=== PATIENT | female | born 1975 | race Caucasian/White ===

== ENCOUNTER 2017-07-07 12:07 | Emergency (ER) | payer MEDICAID ==
--- NOTE | 2017-07-07 12:58 | ED Physician Chart ---
ED Chief Complaint/HPI - Patient Information Date Seen:: 07/07/17 Time Seen:: 12:40 Chief Complaint:: vaginal spotting History of Present Illness:: Patient developed vaginal spotting this morning. She denies abdominal pain. Patient is 11 weeks . Her last normal menstrual period was 04/23/2017. Patient is 13 para 9 miscarriage 3 living 9. Allergies:: Allergies Allergy/AdvReac Type Severity Reaction Status Date / Time No Known Allergies Allergy Verified 07/07/17 12:46 Vitals:: Vital Signs - 8 hr 07/07/17 12:19 Temp 98.1 F HR 86 RR 18 BP 93/48 O2 Sat % 97 Historian:: Patient Review:: Nurse's Note Reviewed ED Review of Systems - Review of Systems General/Constitutional: No fever, No chills Skin: No skin lesions Head: No headache Eyes: No loss of vision ENT: No earache Neck: No neck pain Cardio Vascular: No chest pain, No palpitations Pulmonary: No SOB GI: No nausea, No vomiting, No diarrhea, No pain G/U: No dysuria Musculoskeletal: No bone or joint pain, No back pain, No muscle pain Endocrine: No polyuria, No polydipsia Psychiatric: No prior psych history Hematopoietic: No bruising Allergic/Immuno: No urticaria Neurological: No syncope, No focal symptoms Family Medical History - Family Member Mother History Unknown: Yes Age: 67 Ethnicity: Living Status: Still Living Hx Family Diabetes: Yes Hx Family COPD: Yes ED Physical Exam - Physical Examination General/Constitutional: Well-developed, well-nourished, Alert, No distress Head: Atraumatic Eyes: Lids, conjuctiva normal, PERRL Skin: Nl inspection, No rash ENMT: External ears, nose nl, TM canals nl Neck: No nuchal rigidity Respiratory: Nl effort/Exclusion, Clear to Auscultation, No Wheeze/Rhonchi/Rales Cardio Vascular: RRR, No murmur, gallop, rubs, NL S1 S2 GI: No tenderness/rebounding/guarding, No organomegaly, No hernia, Normal BS's : No CVA tenderness, NL external genitalia, No CMT, NL adnexa Other comments:: Bimanual pelvic exam: Minimal radiation about fluid on examining glove; uterus not enlarged palpation; no cervical motion or adnexal tenderness Extremities: Normal digits & nails ED Labs/Radiology/EKG Results - Lab Results Results: Laboratory Results - last 24 hr 07/07/17 07/07/17 07/07/17 12:50 13:00 13:00 WBC 12.2 H RBC 4.94 Hgb 14.4 Hct 43.0 MCV 87.1 MCH 29.1 MCHC Differential 33.4 RDW 13.2 Plt Count 301 MPV 8.5 Neutrophils % 67.2 Lymphocytes % 25.5 Monocytes % 4.8 Eosinophils % 1.9 Basophils % 0.6 Beta HCG, Quant 7407 H* Urine Source [place] Urine Color YELLOW Urine Clarity HAZY Urine pH 6.0 Ur Specific [place] <= 1.005 Urine Protein NEGATIVE Urine Glucose (UA) NEGATIVE Urine Ketones NEGATIVE Urine Blood NEGATIVE Urine Nitrate NEGATIVE Urine Bilirubin NEGATIVE Urine Urobilinogen 0.2 Ur Leukocyte Esterase NEGATIVE Urine RBC 0-2 Urine WBC 0-2 Ur Epithelial Cells FEW Urine Bacteria NONE SEEN Blood Type Antibody Screen 07/07/17 13:00 WBC RBC Hgb Hct MCV MCH MCHC Differential RDW Plt Count MPV Neutrophils % Lymphocytes % Monocytes % Eosinophils % Basophils % Beta HCG, Quant Urine Source Urine Color Urine Clarity Urine pH Ur Specific [place] Urine Protein Urine Glucose (UA) Urine Ketones Urine Blood Urine Nitrate Urine Bilirubin Urine Urobilinogen Ur Leukocyte Esterase Urine RBC Urine WBC Ur Epithelial Cells Urine Bacteria Blood Type A POSITIVE Antibody Screen NEGATIVE - Radiology Results Results: Ultrasound showed 8 weeks gestational sac without heart tone ED Assessment - Assessment General Assessment: At 1445 patient has noted minimal vaginal bleeding. Told patient that if that her bleeding becomes heavy she should either call 911 or go to [facility] as we do not have MONOGRAM TECHNICIAN on-call here. ED Septic Shock - . Is Septic Shock (SBP<90, OR Lactate>4 mmol\L) present?: No - <6hrs of presentation: Vital Signs: Vital Signs - 8 hr 07/07/17 12:19 Temp 98.1 F HR 86 RR 18 BP 93/48 O2 Sat % 97 ED Reassessment (Disposition) - Reassessment Reassessment Condition:: Unchanged - Diagnosis Diagnosis:: Incomplete AB - Aftercare/Follow up Instructions Aftercare/Follow-Up Instructions:: Refer to Discharge Instructions - Patient Disposition Discharge/Transfer:: Home Condition at Disposition:: Stable, Unchanged
[2017-07-07 13:11] LABS: % BASOPHILS 0.6 % (0.0-2.0); % EOSINOPHILS 1.9 % (0.0-5.0); % LYMPHOCYTES 25.5 % (20.0-50.0); % MONOCYTES 4.8 % (2.0-10.0); % NEUTROPHILS 67.2 % (40.0-80.0); BASOPHILE ABSOLUTE 0.1 Th/cumm (0-0.2); EOSINOPHILE ABSOLUTE 0.2 Th/cmm (0.1-0.4); HEMOGLOBIN 14.4 gm/dL (12-16); LYMPHOCYTE ABSOLUTE 3.1 Th/cmm (1.5-3.0); MEAN CELL VOLUME 87.1 fl (81-100); MEAN CORPUSCULAR HEMOGLOBIN 29.1 pg (27.0-31.0); MEAN CORPUSCULAR HGB CONC 33.4 pg (28.0-36.0); MEAN PLATELET VOLUME 8.5 fl; MONOCYTE ABSOLUTE 0.6 Th/cmm (0.3-1.0); NEUTROPHILE ABSOLUTE 8.2 Th/cmm (1.8-8.0); PLATELET COUNT 301 Th/cmm (150-400); RED BLOOD COUNT 4.94 Mil/cmm (3.80-5.10); RED CELL DISTRIBUTION WIDTH 13.2 % (11.5-20.0)
[2017-07-07 13:12] LABS: URINE MICROSCOPIC INDICATED? YES; URINE SOURCE MIDSTREAM
[2017-07-07 13:14] LABS: URINE BILIRUBIN NEGATIVE (NEGATIVE); URINE BLOOD NEGATIVE (NEGATIVE); URINE GLUCOSE (UA) NEGATIVE (NEGATIVE); URINE KETONE NEGATIVE (NEGATIVE); URINE LEUKOCYTE ESTERASE NEGATIVE (NEGATIVE); URINE NITRATE NEGATIVE (NEGATIVE); URINE PROTEIN NEGATIVE (NEGATIVE); URINE UROBILINOGEN 0.2 E.U./dL (0.2 - 1.0)
[2017-07-07 13:18] LABS: URINE CLARITY HAZY (CLEAR); URINE COLOR YELLOW
[2017-07-07 13:20] LABS: URINE BACTERIA NONE SEEN /hpf (NONE SEEN); URINE EPITHELIAL CELLS FEW /lpf (FEW); URINE RBC 0-2 /hpf (0-5); URINE WBC 0-2 /hpf (0-5)
[2017-07-07 13:22] LABS: WHITE BLOOD COUNT 12.2 Th/cmm (4.8-10.8)
--- NOTE | 2017-07-08 09:00 | Diagnostic Imaging Report ---
Ultrasound OB < 14 weeks HISTORY: Intermittent vaginal bleeding and spotting for 2 days LMP is 04/24/2017. Beta hCG is positive. COMPARISON: None Technique: Longitudinal and transverse sonographic sector images of the pelvis were obtained transabdominally and transvaginally. FINDINGS: The uterus measures 10.1 x 6.9 x 7.9 cm. An intrauterine gestational sac is noted. Yolk sac is not clearly visualized. An embryo is noted measuring 1.59 cm corresponding to gestational age of 8 weeks and 6 days +/- 1week. No cardiac activity was identified. There appears to be a subchorionic hemorrhage measuring 1.1 x 0.5 cm. The ovaries not visualized. No evidence of free fluid in the pelvis. IMPRESSION: Intrauterine gestation noted with estimated gestational age of 8 weeks and 6 days +/- 1week based on crown-rump length. No heart tones were detected at this time. As such, findings may represent demise. Correlation is made with clinical findings and serial follow-up beta hCGs. Small subchorionic hemorrhage measuring 1.1 x 0.5 cm. Again follow-up is recommended The ovaries are not visualized. No evidence of free fluid in the pelvis.
== END 2017-07-07 15:00 | disposition short-term general hospital (02) ==
LOC: ER 12:07
DX: O03.4 Incomplete spontaneous abortion without complication (principal); Z3A.11 11 weeks gestation of pregnancy
CPT/HCPCS: 36415-UA; 76801-TC; 81001-TC; 84702-TC; 85025-TC; 86850-TC; 86900-TC; 86901-TC

== ENCOUNTER 2018-08-02 17:01 | Inpatient (IN) | payer MEDICAID ==
[2018-08-02] MEDS ORDERED: Albuterol/Ipratropium Neb 3 ML AERS HHN ONE ×4 (17:18→18:53)
[2018-08-02] MEDS ORDERED: cefTRIAXone 1 GM in Sodium Chloride 0.9% 50 ML IV ONE (18:44)
[2018-08-02] MEDS ORDERED: Sodium Chloride 0.9% 1,000 ML IV ONE (18:45)
[2018-08-02 20:45] LABS: HEMATOCRIT 45.7 % (41.0-60); HEMOGLOBIN 15.1 gm/dL (12-16); MEAN CELL VOLUME 88.4 fl (81-100); MEAN CORPUSCULAR HEMOGLOBIN 29.2 pg (27.0-31.0); MEAN CORPUSCULAR HGB CONC 33.1 pg (28.0-36.0); MEAN PLATELET VOLUME 9.7 fl; PLATELET COUNT 227 Th/cmm (150-400); RED BLOOD COUNT 5.17 Mil/cmm (3.80-5.10)
[2018-08-02 20:48] LABS: WHITE BLOOD COUNT 18.5 Th/cmm (4.8-10.8)
[2018-08-02 20:53] LABS: URINE SOURCE MIDSTREAM
[2018-08-02 20:55] LABS: URINE BILIRUBIN NEGATIVE (NEGATIVE); URINE BLOOD NEGATIVE (NEGATIVE); URINE GLUCOSE (UA) NEGATIVE (NEGATIVE); URINE KETONE NEGATIVE (NEGATIVE); URINE LEUKOCYTE ESTERASE NEGATIVE (NEGATIVE); URINE NITRATE NEGATIVE (NEGATIVE); URINE PROTEIN NEGATIVE (NEGATIVE); URINE UROBILINOGEN 0.2 E.U./dL (0.2 - 1.0)
[2018-08-02 20:59] LABS: ALB/GLOB RATIO 1.4 (1.0-1.8); ALBUMIN 4.4 gm/dL (3.7-5.3); ALKALINE PHOSPHATASE 109 U/L (34-104); ANION GAP 13.4 (7.0-16.0); BILIRUBIN,TOTAL 0.3 mg/dL (0.3-1.0); BUN - UREA NITROGEN 8 mg/dL (7-25); CALCIUM SERUM 9.3 mg/dL (8.6-10.3); CARBON DIOXIDE 22.2 mEq/L (21.0-31.0); CHLORIDE 105 mEq/L (98-107); CREATININE - SERUM 0.6 mg/dL (0.6-1.2); CREATININE KINASE 69 U/L (30-223); GFR AFRICAN-AMERICAN > 60.0 ml/min (>90); GFR NON AFRICAN-AMERICAN > 60.0 ml/min; GLUCOSE 107 mg/dL (70-105); INR 0.92 (0.5-1.4); POTASSIUM SERUM 3.6 mEq/L (3.5-5.1); PROTHROMBIN TIME (TEST) 9.6 SECONDS (9.5-11.5); SGOT 18 U/L (13-39); SGPT/ALT 18 U/L (7-52); SODIUM SERUM 137 mEq/L (136-145); TOTAL PROTEIN,SERUM 7.5 gm/dL (6.0-8.3)
[2018-08-02 21:03] LABS: BAND NEUTROPHILE 4 % (0-10); LYMPHOCYTE 23 % (20-50); MONOCYTE 4 % (2-10); NEUTROPHILS 69 % (40-80); TROP I < 0.01 ng/mL (0.01-0.05)
[2018-08-02 21:04] LABS: URINE CLARITY CLEAR (CLEAR); URINE COLOR YELLOW; URINE MICROSCOPIC INDICATED? YES
[2018-08-02 21:06] LABS: URINE EPITHELIAL CELLS FEW /lpf (FEW); URINE RBC 0-2 /hpf (0-5)
[2018-08-02 21:07] LABS: URINE BACTERIA FEW /hpf (NONE SEEN)
[2018-08-03] MEDS: Sodium Chloride 0.9% 1,000 ML IV SCH ×2 (02:15→17:21)
[2018-08-03 02:46] VITALS: BP 117/70
[2018-08-03] MEDS: Azithromycin 500 MG in Sodium Chloride 0.9% 250 ML IV SCH (03:32)
[2018-08-03 05:38] LABS: % BASOPHILS 0.1 % (0.0-2.0); % EOSINOPHILS 0.2 % (0.0-5.0); HEMOGLOBIN 14.4 gm/dL (12-16); LYMPHOCYTE ABSOLUTE 3.4 Th/cmm (1.5-3.0); MONOCYTE ABSOLUTE 0.3 Th/cmm (0.3-1.0); RED BLOOD COUNT 4.91 Mil/cmm (3.80-5.10)
[2018-08-03 05:53] LABS: % LYMPHOCYTES 25.2 % (20.0-50.0); % NEUTROPHILS 72.5 % (40.0-80.0); HEMATOCRIT 44.4 % (41.0-60); MEAN CELL VOLUME 90.5 fl (81-100); MEAN CORPUSCULAR HEMOGLOBIN 29.2 pg (27.0-31.0); MEAN CORPUSCULAR HGB CONC 32.3 pg (28.0-36.0); MEAN PLATELET VOLUME 9.7 fl; NEUTROPHILE ABSOLUTE 9.8 Th/cmm (1.8-8.0); PLATELET COUNT 222 Th/cmm (150-400); RED CELL DISTRIBUTION WIDTH 12.8 % (11.5-20.0)
[2018-08-03 05:56] LABS: WHITE BLOOD COUNT 13.5 Th/cmm (4.8-10.8)
[2018-08-03 06:01] LABS: ANION GAP 11.4 (7.0-16.0); BUN - UREA NITROGEN 6 mg/dL (7-25); CALCIUM SERUM 9.1 mg/dL (8.6-10.3); CARBON DIOXIDE 20.7 mEq/L (21.0-31.0); CHLORIDE 110 mEq/L (98-107); CREATININE - SERUM 0.6 mg/dL (0.6-1.2); GFR AFRICAN-AMERICAN > 60.0 ml/min (>90); GFR NON AFRICAN-AMERICAN > 60.0 ml/min; POTASSIUM SERUM 4.1 mEq/L (3.5-5.1); SODIUM SERUM 138 mEq/L (136-145)
[2018-08-03 06:10] LABS: GLUCOSE 217 mg/dL (70-105)
[2018-08-03] MEDS: methylPREDNISolone SS 40 mg Vial IVP SCH ×3 (06:28→20:25)
[2018-08-03] MEDS: Budesonide 0.5 Mg/2 mL Ud HHN SCH ×2 (08:42→18:31)
[2018-08-03] MEDS: Albuterol/Ipratropium Neb 3 ML AERS HHN PRN (08:43)
--- NOTE | 2018-08-03 08:51 | Diagnostic Imaging Report ---
Portable chest x-ray History: Shortness of breath Allowing for portable technique the heart size is normal. No focal pulmonary parenchymal processes. No hilar or mediastinal abnormalities. Impression: No acute abnormalities.
--- NOTE | 2018-08-03 11:38 | ER Physician Documentation ---
DATE OF SERVICE: 08/03/2018 HISTORY OF PRESENT ILLNESS: This is a 43-year-old female patient who presented to the Emergency Room with acute shortness of breath, wheezing, cough and congestion. This patient has a past history of asthma. PAST MEDICAL HISTORY: Asthma. MEDICATIONS: Per nurse's notes. ALLERGIES: Per nurse's notes. REVIEW OF SYSTEMS: Otherwise, noncontributory. PHYSICAL EXAMINATION: GENERAL: Found the patient to be in no acute distress, but was in mild respiratory distress with wheezing. VITAL SIGNS: Stable and the patient was afebrile. HEENT: Unremarkable. NECK: Supple. CARDIOVASCULAR: Regular rate and rhythm. LUNGS: Showed positive rales, rhonchi and prolonged expiratory wheezes with excessive use of accessory muscles of respiration. ABDOMEN: Soft, nontender, normal active bowel sounds, no pulsatile mass. EXTREMITIES: No edema, clubbing or cyanosis. NEUROLOGIC: No focal signs. LABORATORY DATA: White count was 18,500, otherwise unremarkable. Chest x-ray showed a patchy infiltrate. The patient is not . Otherwise, labs were unremarkable. HOSPITAL COURSE: The patient received multiple treatments of respiratory treatments of aerosolized Alupent and handheld nebulizers and DuoNeb treatments plus Solu-Medrol plus Rocephin. Despite these measures the patient did not improve, improved slightly, but not good enough to be to be discharged and thus after being in the Emergency Room for several hours it was determined that the patient should be admitted and the patient was thus admitted. The patient was admitted to a regular medical surgical floor with the diagnosis of acute asthma, acute exacerbation of asthma, leukocytosis, cough, congestion, bronchitis and possibly early pneumonia. [facility]# [id number]
[2018-08-03] MEDS ORDERED: Acetaminophen 500 MG TAB PO PRN (12:30)
--- NOTE | 2018-08-03 12:53 | History & Physical ---
ADMIT DATE: 08/03/2018 CHIEF COMPLAINT: Shortness of breath. HISTORY OF PRESENT ILLNESS: This is a 43-year-old female with history of asthma, who presented with a 1-week history of worsening shortness of breath, chest tightness and secretions. The patient states that her last asthma exacerbation was roughly about 2 years ago when she was briefly hospitalized, at this facility, but has been doing well since then. She reported worsening shortness of breath and productive cough for white yellowish phlegm. She denied any fever, chills or any recent sick contacts. She states that this episode is similar to her previous episodes of asthma exacerbation. At the ER, she was noted to be tachycardic at 115, and her labs showed a white count of 18.5. She has been admitted to the telemetry angelo for further management and care. PAST MEDICAL HISTORY: Asthma as noted above, ?COPD, previous anemia. PAST SURGICAL HISTORY: Denies. FAMILY HISTORY: Noncontributory. SOCIAL HISTORY: She does admit to daily cigarette smoking at times up to a pack a day, but this varies, and she has been smoking for many years. Denies any EtOH or illicit drug usage. Lives at home with family. ALLERGIES: NKDA. OUTPATIENT MEDICATIONS: Currently none. REVIEW OF SYSTEMS: CONSTITUTIONAL: No recent weight loss. Denies any fever or chills. CARDIAC: No chest pain or palpitations. PULMONARY: Please refer to HPI. GASTROINTESTINAL: No bowel habit changes. GENITOURINARY: No bladder habit changes. NEUROLOGIC: No changes in vision, no headaches. PHYSICAL EXAMINATION: VITAL SIGNS: Temperature 98.2, pulse 85, BP 117/70, respirations 17-18, with sats of 92% -97% on 2 liters. GENERAL: Well-developed, obese female, speaking in 3-4 word sentences, not in acute distress. She appears to be nontoxic. HEENT: Normocephalic, atraumatic. Pupils reactive to light. Extraocular movements are intact. Oropharynx moist and clear. CARDIOVASCULAR: Regular rate and rhythm without any murmurs. LUNGS: Severely diminished bilaterally, currently with no noticeable wheezing, rhonchi or crackles. ABDOMEN: Soft, supple and nontender, nondistended, normoactive bowel sounds. LOWER EXTREMITIES: There is no pedal edema. NEUROLOGIC: Grossly intact, nonfocal. LABORATORY DATA: On admission, white count 18.5, otherwise CBC within normal limits. 69% neutrophils. Chem-20 was essentially within normal limits. Alkaline phosphatase 109. Troponins are negative x 1. Urine was negative. UA was essentially within normal limits. DIAGNOSTICS: Chest x-ray from the ER report possible developing pneumonia. ASSESSMENT: 1. Acute asthma exacerbation. 2. Bronchitis versus early pneumonia. 3. Leukocytosis. 4. Tachycardia. 5. History of asthma. PLAN: The patient has been admitted to the tele angelo for management and care. The patient has been placed on IV fluids, IV antibiotics and IV steroids as well as inhaled steroids. She also is on pulmonary supportive care, i.e., DuoNeb q.4 hours while awake and p.r.n. and supplemental oxygen. A sputum C and S will be asked for and an influenza A and B screen will be also ordered. A followup x-ray will be done in the morning. JOB# [id number] [facility]
[2018-08-03] MEDS: cefTRIAXone 1 GM in Sodium Chloride 0.9% 50 ML IV SCH (18:10)
[2018-08-04] MEDS: Azithromycin 500 MG in Sodium Chloride 0.9% 250 ML IV SCH (02:33)
[2018-08-04] MEDS: methylPREDNISolone SS 40 mg Vial IVP SCH (05:35)
[2018-08-04 06:27] LABS: EOSINOPHILE ABSOLUTE 0.1 Th/cmm (0.1-0.4); HEMATOCRIT 40.5 % (41.0-60); HEMOGLOBIN 13.8 gm/dL (12-16); LYMPHOCYTE ABSOLUTE 4.4 Th/cmm (1.5-3.0); MEAN CELL VOLUME 87.7 fl (81-100); MEAN CORPUSCULAR HGB CONC 34.2 pg (28.0-36.0); MEAN PLATELET VOLUME 8.9 fl; NEUTROPHILE ABSOLUTE 20.4 Th/cmm (1.8-8.0); PLATELET COUNT 237 Th/cmm (150-400); RED BLOOD COUNT 4.62 Mil/cmm (3.80-5.10)
[2018-08-04 06:48] LABS: ANION GAP 11.6 (7.0-16.0); BUN - UREA NITROGEN 9 mg/dL (7-25); CALCIUM SERUM 8.9 mg/dL (8.6-10.3); CARBON DIOXIDE 22.5 mEq/L (21.0-31.0); CHLORIDE 111 mEq/L (98-107); CREATININE - SERUM 0.5 mg/dL (0.6-1.2); GFR AFRICAN-AMERICAN > 60.0 ml/min (>90); GFR NON AFRICAN-AMERICAN > 60.0 ml/min; GLUCOSE 157 mg/dL (70-105); MAGNESIUM 2.1 mg/dL (1.9-2.7); POTASSIUM SERUM 4.1 mEq/L (3.5-5.1); SODIUM SERUM 141 mEq/L (136-145)
[2018-08-04 06:57] LABS: WHITE BLOOD COUNT 25.9 Th/cmm (4.8-10.8)
[2018-08-04] MEDS: Budesonide 0.5 Mg/2 mL Ud HHN SCH ×2 (08:08→19:33)
[2018-08-04 08:30] LABS: BAND NEUTROPHILE 0 % (0-10); BASOPHIL 0 % (0-3); EOSINOPHIL 0 % (0-5); LYMPHOCYTE 12 % (20-50); MONOCYTE 4 % (2-10); NEUTROPHILS 84 % (40-80)
[2018-08-04 08:31] LABS: PLATELET ESTIMATE ADEQUATE (NORMAL)
--- NOTE | 2018-08-04 08:33 | Diagnostic Imaging Report ---
Chest x-ray 2 views HISTORY:Cough The overall heart size is normal. No focal pulmonary processes. No hilar or mediastinal abnormalities. IMPRESSION: No acute abnormalities.
[2018-08-04] MEDS: Sodium Chloride 0.9% 1,000 ML IV SCH (10:37)
[2018-08-04] MEDS: Triamcinolone Acetonide 0.1% Cream 15 gm TP SCH ×2 (13:06→18:56)
--- NOTE | 2018-08-04 17:47 | Internal Medicine Prog Note ---
Internal Medicine Subjective - Subjective Service Date: 08/04/18 (feels better-still with sob/[place]. Discussed findings with pt and .) Patient seen and examined:: with staff Patient is:: awake, talking, denies any new complaints, congested Patient Complaints of:: congestion, cough, SOB ([place]) Per staff patient has:: no adverse event Internal Medicine Objective - Results Result Diagrams: 08/04/18 06:00 08/04/18 06:00 Recent Labs: Laboratory Last Values WBC 25.9 Th/cmm (4.8-10.8) H* 08/04/18 06:00 RBC 4.62 Mil/cmm (3.80-5.10) 08/04/18 06:00 Hgb 13.8 gm/dL (12-16) 08/04/18 06:00 Hct 40.5 % (41.0-60) L 08/04/18 06:00 MCV 87.7 fl (81-100) 08/04/18 06:00 MCH 30.0 pg (27.0-31.0) 08/04/18 06:00 MCHC Differential 34.2 pg (28.0-36.0) 08/04/18 06:00 RDW 13.0 % (11.5-20.0) 08/04/18 06:00 Plt Count 237 Th/cmm (150-400) 08/04/18 06:00 MPV 8.9 fl 08/04/18 06:00 Add Manual Diff YES 08/04/18 06:00 Neutrophils % 72.5 % (40.0-80.0) 08/03/18 04:50 Band Neutrophils % 0 % (0-10) 08/04/18 06:00 Lymphocytes % 25.2 % (20.0-50.0) 08/03/18 04:50 Monocytes % 2.0 % (2.0-10.0) 08/03/18 04:50 Eosinophils % 0.2 % (0.0-5.0) 08/03/18 04:50 Basophils % 0.1 % (0.0-2.0) 08/03/18 04:50 Neutrophils (Manual) 84 % (40-80) H 08/04/18 06:00 Lymphocytes 12 % (20-50) L 08/04/18 06:00 Monocytes 4 % (2-10) 08/04/18 06:00 Eosinophils 0 % (0-5) 08/04/18 06:00 Basophils 0 % (0-3) 08/04/18 06:00 Platelet Estimate ADEQUATE (NORMAL) 08/04/18 06:00 PT 9.6 SECONDS (9.5-11.5) 08/02/18 18:00 INR 0.92 (0.5-1.4) 08/02/18 18:00 PTT (Actin FS) 26.8 SECONDS (26.0-38.0) 08/02/18 18:00 Sodium 141 mEq/L (136-145) 08/04/18 06:00 Potassium 4.1 mEq/L (3.5-5.1) 08/04/18 06:00 Chloride 111 mEq/L (98-107) H 08/04/18 06:00 Carbon Dioxide 22.5 mEq/L (21.0-31.0) 08/04/18 06:00 Anion Gap 11.6 (7.0-16.0) 08/04/18 06:00 BUN 9 mg/dL (7-25) 08/04/18 06:00 Creatinine 0.5 mg/dL (0.6-1.2) L 08/04/18 06:00 Est GFR ( Amer) > 60.0 ml/min (>90) 08/04/18 06:00 Est GFR (Non-Af Amer) > 60.0 ml/min 08/04/18 06:00 BUN/Creatinine Ratio 18.0 08/04/18 06:00 Glucose 157 mg/dL (70-105) H 08/04/18 06:00 Whole Bld Lactic Acid 1.51 mmol/L (0.60-1.99) 08/02/18 18:00 Calcium 8.9 mg/dL (8.6-10.3) 08/04/18 06:00 Magnesium 2.1 mg/dL (1.9-2.7) 08/04/18 06:00 Total Bilirubin 0.3 mg/dL (0.3-1.0) 08/02/18 18:00 AST 18 U/L (13-39) 08/02/18 18:00 ALT 18 U/L (7-52) 08/02/18 18:00 Alkaline Phosphatase 109 U/L (34-104) H 08/02/18 18:00 Creatine Kinase 69 U/L (30-223) 08/02/18 18:00 Troponin I < 0.01 ng/mL (0.01-0.05) L 08/02/18 18:00 Total Protein 7.5 gm/dL (6.0-8.3) 08/02/18 18:00 Albumin 4.4 gm/dL (3.7-5.3) 08/02/18 18:00 Globulin 3.1 gm/dL 08/02/18 18:00 Albumin/Globulin Ratio 1.4 (1.0-1.8) 08/02/18 18:00 Serum , Qual NEGATIVE (NEGATIVE) 08/02/18 18:00 Urine Source MIDSTREAM 08/02/18 18:19 Urine Color YELLOW 08/02/18 18:19 Urine Clarity CLEAR (CLEAR) 08/02/18 18:19 Urine pH 7.0 (4.6 - 8.0) 08/02/18 18:19 Ur Specific [place] 1.010 (1.005-1.030) 08/02/18 18:19 Urine Protein NEGATIVE mg/dL (NEGATIVE) 08/02/18 18:19 Urine Glucose (UA) NEGATIVE mg/dL (NEGATIVE) 08/02/18 18:19 Urine Ketones NEGATIVE mg/dL (NEGATIVE) 08/02/18 18:19 Urine Blood NEGATIVE (NEGATIVE) 08/02/18 18:19 Urine Nitrate NEGATIVE (NEGATIVE) 08/02/18 18:19 Urine Bilirubin NEGATIVE (NEGATIVE) 08/02/18 18:19 Urine Urobilinogen 0.2 E.U./dL (0.2 - 1.0) 08/02/18 18:19 Ur Leukocyte Esterase NEGATIVE (NEGATIVE) 08/02/18 18:19 Urine RBC 0-2 /hpf (0-5) 08/02/18 18:19 Urine WBC 2-5 /hpf (0-5) 08/02/18 18:19 Ur Epithelial Cells FEW /lpf (FEW) 08/02/18 18:19 Urine Bacteria FEW /hpf (NONE SEEN) 08/02/18 18:19 - Physical Exam Vitals and I&O: Vital Signs Temp 97.9 F 08/04/18 16:00 Pulse 68 08/04/18 16:00 Resp 20 08/04/18 16:00 BP 109/66 08/04/18 16:00 Pulse Ox 93 08/04/18 16:00 Intake & Output 08/03/18 08/04/18 08/04/18 18:59 06:59 18:59 Intake Total 1300.00 1500 Balance 1300.00 1500 Weight (lbs) 105.687 kg Intake: Intake, IV Amount 1300.00 1250 Azithromycin 500 mg In 250 250 Sodium Chloride 0.9% 250 ml @ 250 mls/hr IV Q24HR [facility] Rx#:[id number] Sodium Chloride 0.9% 1, 1000.00 1000 000 ml @ 75 mls/hr IV . [id number] [facility] Rx#:[id number] 1 gm In 50 Sodium Chloride 0.9% 50 ml @ 100 mls/hr IV Q24HR [facility] Rx#:[id number] Oral 250 Other: # Voids 3 # Bowel Movements 1 Weight Source Bedscale Active Medications: Current Medications Acetaminophen (Tylenol Extra Strength) 500 mg PO Q4H PRN PRN Reason: HEADACHE Stop: 10/02/18 12:29 Last Admin: 08/03/18 12:50 Dose: 500 mg Albuterol/Ipratropium (Duoneb Neb) 3 ml HHN Q4HRT PRN PRN Reason: Wheezing Stop: 10/02/18 02:07 Last Admin: 08/03/18 08:43 Dose: 3 ml Budesonide (Pulmicort) 0.5 mg HHN Q12HRT [facility] Stop: 10/02/18 08:59 Azithromycin 500 mg/ Sodium (Chloride) 250 mls @ 250 mls/hr IV Q24HR [facility] Stop: 10/02/18 02:59 Last Infusion: 08/04/18 06:58 Dose: Infused Ceftriaxone Sodium 1 gm/ (Sodium Chloride) 50 mls @ 100 mls/hr IV Q24HR [facility] Stop: 10/02/18 18:51 Last Infusion: 08/03/18 18:40 Dose: Infused Sodium Chloride (Nacl 0.9%) 1,000 mls @ 75 mls/hr IV .[id number] [facility] Stop: 10/02/18 02:07 Last Admin: 08/04/18 10:37 Dose: 75 mls/hr Methylprednisolone Sodium Succinate (Solu-Medrol) 60 mg IVP Q8HR SURINDER Stop: 10/02/18 12:59 Last Admin: 08/04/18 13:06 Dose: 60 mg Triamcinolone Acetonide (Kenalog 0.1%) 1 appl TP BID SURINDER Stop: 10/03/18 09:59 Last Admin: 08/04/18 13:06 Dose: 1 appl General: obese HEENT: NC/AT, PERRLA Neck: No JVD Lungs: wheezing, ronchi Cardiovascular: RRR, Normal S1, Normal S2, without murmur Abdomen: soft, non-tender, non-distended Extremities: clear Neurological: alert - Procedures Procedures: Procedures Procedure Code Date MONITORING NOS 75.34 10/13/07 OB US < 14 WKS SINGLE FETUS 99497 10/13/07 CXR--NO ACUTE ABNORMALITIES NOTED Internal Medicine Assmt/Plan - Assessment Assessment: 1) ACUTE HYPOXIC RESPIRATORY FAILURE 2RY TO BRONCHIAL ASTHMA/COPD EXACERBATION 2) HX OF ASTHMA/COPD 3) R/O TRACHEOBRONCHITIS VS EARLY PNA 4) LEUKOCYTOSIS-LIKELY PARTIALLY 2RY TO STEROIDS 5) HISTORY OIF NICOTINE DEPENDENCE 6) LLE RASH-LIKELY ALLERGIC IN NATURE - Plan Plan: CONT WITH CURRENT SUPPORTIVE CARE AND MGT CONT WITH IV ABXS, PULM TOILET, O2 NEEDED CONT WITH IV/INHALED STEROIDS FOLLOW SPUTUM C/S, CXR ABG ON RA IN AM PULM EVAL
[2018-08-04] MEDS: cefTRIAXone 1 GM in Sodium Chloride 0.9% 50 ML IV SCH (19:51)
--- NOTE | 2018-08-04 22:46 | Consultation ---
DATE OF CONSULTATION: 08/04/[address] Christiansen. Thank you very much Dr. Christiansen for this consultation. HISTORY OF PRESENT ILLNESS: This is a 43-year-old female who has history of asthma, presented with shortness of breath, cough, congestion, and she has nebulizer machine that is not working much anymore. She came and admitted for treatment and management. The patient is feeling a little bit better, continues to have some shortness of breath and no wheezing. The patient also upon questioning states she does not use control medications as she smokes regularly. She does not follow up with regular doctor for her asthma. PAST MEDICAL HISTORY: As above. SOCIAL HISTORY: Smoking a pack a day for over 20 years. PHYSICAL EXAMINATION: GENERAL: Awake, alert, not in acute distress. VITAL SIGNS: Temperature 97.6, pulse 70, respirations 18, blood pressure 130/66, and saturation 91-92% on 2 liters oxygen. HEENT: Atraumatic and normocephalic. Pupils are equal and reactive to light and accommodation. Ears, nose and throat normal. NECK: Supple. No JVD. CHEST: There are scattered rhonchi and wheezing bilaterally with decreased breath sounds. HEART: Regular rate and rhythm. ABDOMEN: Soft. EXTREMITIES: No edema. LABORATORY DATA: WBC 25.9, hemoglobin is 13.8, and platelets 237. Sodium was 141, potassium 4.1, BUN is 9, creatinine 0.5. Chest x-ray clear. IMPRESSION: 1. A 43-year-old female, most likely with underlying chronic obstructive pulmonary disease, many years of smoking with asthma. 2. Hypoxemia. 3. Acute bronchitis. PLAN: 1. Continue IV antibiotics. 2. Nebulizer. 3. IV Solu-Medrol. 4. The patient was advised strongly against smoking and she advised also to use controlled medications on a regular basis to prevent such attacks. We will follow the patient with you. JOB# [id number]
[2018-08-05] MEDS: Azithromycin 500 MG in Sodium Chloride 0.9% 250 ML IV SCH (02:50)
[2018-08-05] MEDS: Albuterol/Ipratropium Neb 3 ML AERS HHN PRN ×2 (02:56→07:05)
[2018-08-05 06:24] LABS: EOSINOPHILE ABSOLUTE 0.1 Th/cmm (0.1-0.4); HEMATOCRIT 40.7 % (41.0-60); HEMOGLOBIN 13.5 gm/dL (12-16); LYMPHOCYTE ABSOLUTE 4.4 Th/cmm (1.5-3.0); MEAN CELL VOLUME 87.7 fl (81-100); MEAN CORPUSCULAR HEMOGLOBIN 29.1 pg (27.0-31.0); MEAN CORPUSCULAR HGB CONC 33.2 pg (28.0-36.0); MEAN PLATELET VOLUME 8.9 fl; MONOCYTE ABSOLUTE 0.4 Th/cmm (0.3-1.0); NEUTROPHILE ABSOLUTE 15.7 Th/cmm (1.8-8.0); PLATELET COUNT 246 Th/cmm (150-400); RED BLOOD COUNT 4.64 Mil/cmm (3.80-5.10); RED CELL DISTRIBUTION WIDTH 13.2 % (11.5-20.0)
[2018-08-05 06:28] LABS: ANION GAP 10.2 (7.0-16.0); BUN - UREA NITROGEN 12 mg/dL (7-25); CALCIUM SERUM 8.5 mg/dL (8.6-10.3); CHLORIDE 111 mEq/L (98-107); CREATININE - SERUM 0.5 mg/dL (0.6-1.2); GFR AFRICAN-AMERICAN > 60.0 ml/min (>90); GFR NON AFRICAN-AMERICAN > 60.0 ml/min; GLUCOSE 124 mg/dL (70-105); POTASSIUM SERUM 4.2 mEq/L (3.5-5.1); SODIUM SERUM 141 mEq/L (136-145)
[2018-08-05 06:51] LABS: WHITE BLOOD COUNT 20.6 Th/cmm (4.8-10.8)
[2018-08-05] MEDS: Budesonide 0.5 Mg/2 mL Ud HHN SCH ×2 (07:01→19:31)
[2018-08-05 08:09] LABS: LYMPHOCYTE 22 % (20-50); NEUTROPHILS 72 % (40-80)
[2018-08-05 08:10] LABS: MONOCYTE 6 % (2-10); PLATELET ESTIMATE ADEQUATE (NORMAL)
[2018-08-05] MEDS: Triamcinolone Acetonide 0.1% Cream 15 gm TP SCH ×2 (08:29→16:53)
[2018-08-05 09:24] LABS: PaCO2 35.1 mmHg (35.0-45.0); PaO2 54.7 mmHg (80.0-100.0); pH 7.44 (7.35-7.45)
[2018-08-05 09:27] LABS: sO2c 89.8 % (92.0-100.0)
[2018-08-05] MEDS: Sodium Chloride 0.9% 1,000 ML IV SCH (09:41)
[2018-08-05] MEDS ORDERED: Probiotic Screen MC PRN (15:00)
[2018-08-05] MEDS: cefTRIAXone 1 GM in Sodium Chloride 0.9% 50 ML IV SCH (18:12)
--- NOTE | 2018-08-05 18:58 | Internal Medicine Prog Note ---
Internal Medicine Subjective - Subjective Service Date: 08/05/18 Patient is:: awake, talking, denies any new complaints, congested Patient Complaints of:: congestion, cough, SOB ([place]) Per staff patient has:: no adverse event Internal Medicine Objective - Results Result Diagrams: 08/05/18 05:40 08/05/18 05:40 Recent Labs: Laboratory Last Values WBC 20.6 Th/cmm (4.8-10.8) H* D 08/05/18 05:40 RBC 4.64 Mil/cmm (3.80-5.10) 08/05/18 05:40 Hgb 13.5 gm/dL (12-16) 08/05/18 05:40 Hct 40.7 % (41.0-60) L 08/05/18 05:40 MCV 87.7 fl (81-100) 08/05/18 05:40 MCH 29.1 pg (27.0-31.0) 08/05/18 05:40 MCHC Differential 33.2 pg (28.0-36.0) 08/05/18 05:40 RDW 13.2 % (11.5-20.0) 08/05/18 05:40 Plt Count 246 Th/cmm (150-400) 08/05/18 05:40 MPV 8.9 fl 08/05/18 05:40 Add Manual Diff YES 08/05/18 05:40 Neutrophils % 72.5 % (40.0-80.0) 08/03/18 04:50 Band Neutrophils % 0 % (0-10) 08/04/18 06:00 Lymphocytes % 25.2 % (20.0-50.0) 08/03/18 04:50 Monocytes % 2.0 % (2.0-10.0) 08/03/18 04:50 Eosinophils % 0.2 % (0.0-5.0) 08/03/18 04:50 Basophils % 0.1 % (0.0-2.0) 08/03/18 04:50 Neutrophils (Manual) 72 % (40-80) 08/05/18 05:40 Lymphocytes 22 % (20-50) 08/05/18 05:40 Monocytes 6 % (2-10) 08/05/18 05:40 Eosinophils 0 % (0-5) 08/04/18 06:00 Basophils 0 % (0-3) 08/04/18 06:00 Platelet Estimate ADEQUATE (NORMAL) 08/05/18 05:40 PT 9.6 SECONDS (9.5-11.5) 08/02/18 18:00 INR 0.92 (0.5-1.4) 08/02/18 18:00 PTT (Actin FS) 26.8 SECONDS (26.0-38.0) 08/02/18 18:00 Specimen Source Arterial 08/05/18 08:00 Sample Site RB 08/05/18 08:00 pH 7.44 (7.35-7.45) 08/05/18 08:00 pCO2 35.1 mmHg (35.0-45.0) 08/05/18 08:00 pO2 54.7 mmHg (80.0-100.0) L 08/05/18 08:00 HCO3 23.2 mEq/L (20.0-26.0) 08/05/18 08:00 Base Excess -0.4 mEq/L (-3.0-3.0) 08/05/18 08:00 O2 Saturation 89.8 % (92.0-100.0) L 08/05/18 08:00 Juan J Test NA 08/05/18 08:00 Vent Rate NA 08/05/18 08:00 Inspired O2 21 08/05/18 08:00 Tidal Volume NA 08/05/18 08:00 PEEP NA 08/05/18 08:00 Pressure (ins/psv/peep) NA 08/05/18 08:00 Critical Value SH 08/05/18 08:00 Sodium 141 mEq/L (136-145) 08/05/18 05:40 Potassium 4.2 mEq/L (3.5-5.1) 08/05/18 05:40 Chloride 111 mEq/L (98-107) H 08/05/18 05:40 Carbon Dioxide 24.0 mEq/L (21.0-31.0) 08/05/18 05:40 Anion Gap 10.2 (7.0-16.0) 08/05/18 05:40 BUN 12 mg/dL (7-25) 08/05/18 05:40 Creatinine 0.5 mg/dL (0.6-1.2) L 08/05/18 05:40 Est GFR ( Amer) > 60.0 ml/min (>90) 08/05/18 05:40 Est GFR (Non-Af Amer) > 60.0 ml/min 08/05/18 05:40 BUN/Creatinine Ratio 24.0 08/05/18 05:40 Glucose 124 mg/dL (70-105) H 08/05/18 05:40 Whole Bld Lactic Acid 1.51 mmol/L (0.60-1.99) 08/02/18 18:00 Calcium 8.5 mg/dL (8.6-10.3) L 08/05/18 05:40 Magnesium 2.1 mg/dL (1.9-2.7) 08/04/18 06:00 Total Bilirubin 0.3 mg/dL (0.3-1.0) 08/02/18 18:00 AST 18 U/L (13-39) 08/02/18 18:00 ALT 18 U/L (7-52) 08/02/18 18:00 Alkaline Phosphatase 109 U/L (34-104) H 08/02/18 18:00 Creatine Kinase 69 U/L (30-223) 08/02/18 18:00 Troponin I < 0.01 ng/mL (0.01-0.05) L 08/02/18 18:00 Total Protein 7.5 gm/dL (6.0-8.3) 08/02/18 18:00 Albumin 4.4 gm/dL (3.7-5.3) 08/02/18 18:00 Globulin 3.1 gm/dL 08/02/18 18:00 Albumin/Globulin Ratio 1.4 (1.0-1.8) 08/02/18 18:00 Serum , Qual NEGATIVE (NEGATIVE) 08/02/18 18:00 Urine Source MIDSTREAM 08/02/18 18:19 Urine Color YELLOW 08/02/18 18:19 Urine Clarity CLEAR (CLEAR) 08/02/18 18:19 Urine pH 7.0 (4.6 - 8.0) 08/02/18 18:19 Ur Specific [place] 1.010 (1.005-1.030) 08/02/18 18:19 Urine Protein NEGATIVE mg/dL (NEGATIVE) 08/02/18 18:19 Urine Glucose (UA) NEGATIVE mg/dL (NEGATIVE) 08/02/18 18:19 Urine Ketones NEGATIVE mg/dL (NEGATIVE) 08/02/18 18:19 Urine Blood NEGATIVE (NEGATIVE) 08/02/18 18:19 Urine Nitrate NEGATIVE (NEGATIVE) 08/02/18 18:19 Urine Bilirubin NEGATIVE (NEGATIVE) 08/02/18 18:19 Urine Urobilinogen 0.2 E.U./dL (0.2 - 1.0) 08/02/18 18:19 Ur Leukocyte Esterase NEGATIVE (NEGATIVE) 08/02/18 18:19 Urine RBC 0-2 /hpf (0-5) 08/02/18 18:19 Urine WBC 2-5 /hpf (0-5) 08/02/18 18:19 Ur Epithelial Cells FEW /lpf (FEW) 08/02/18 18:19 Urine Bacteria FEW /hpf (NONE SEEN) 08/02/18 18:19 - Physical Exam Vitals and I&O: Vital Signs Temp 97.9 F 08/05/18 16:00 Pulse 71 08/05/18 16:00 Resp 18 08/05/18 16:00 BP 129/69 08/05/18 16:00 Pulse Ox 100 08/05/18 16:00 Intake & Output 08/04/18 08/05/18 08/05/18 18:59 06:59 18:59 Intake Total 1800 1050 1050 Balance 1800 1050 1050 Weight (lbs) 105.687 kg 105.687 kg Intake: Intake, IV Amount 1050 50 Sodium Chloride 0.9% 1, 1000 000 ml @ 75 mls/hr IV . [id number] [facility] Rx#:[id number] cefTRIAXone 1 gm In 50 50 Sodium Chloride 0.9% 50 ml @ 100 mls/hr IV Q24HR [facility] Rx#:[id number] Oral 1800 1000 Other: # Voids 4 3 # Bowel Movements 1 Weight Source Bedscale Bedscale Active Medications: Current Medications Acetaminophen (Tylenol Extra Strength) 500 mg PO Q4H PRN PRN Reason: HEADACHE Stop: 10/02/18 12:29 Last Admin: 08/03/18 12:50 Dose: 500 mg Albuterol/Ipratropium (Duoneb Neb) 3 ml HHN Q4HRT PRN PRN Reason: Wheezing Stop: 10/02/18 02:07 Last Admin: 08/05/18 07:05 Dose: 3 ml Budesonide (Pulmicort) 0.5 mg HHN Q12HRT [facility] Stop: 10/02/18 08:59 Last Admin: 08/05/18 07:01 Dose: 0.5 mg Azithromycin 500 mg/ Sodium (Chloride) 250 mls @ 250 mls/hr IV Q24HR [facility] Stop: 10/02/18 02:59 Last Admin: 08/05/18 02:50 Dose: 250 mls/hr Ceftriaxone Sodium 1 gm/ (Sodium Chloride) 50 mls @ 100 mls/hr IV Q24HR [facility] Stop: 10/02/18 18:51 Last Infusion: 08/05/18 18:48 Dose: Infused Sodium Chloride (Nacl 0.9%) 1,000 mls @ 75 mls/hr IV .[id number] [facility] Stop: 10/02/18 02:07 Last Admin: 08/05/18 09:41 Dose: 75 mls/hr Methylprednisolone Sodium Succinate (Solu-Medrol) 40 mg IVP Q12HR [facility] Stop: 10/04/18 20:59 Miscellaneous (Probiotic Screen) 1 ea MC PRN PRN PRN Reason: PROTOCOL Stop: 10/04/18 14:59 Triamcinolone Acetonide (Kenalog 0.1%) 1 appl TP BID [facility] Stop: 10/03/18 09:59 Last Admin: 08/05/18 16:53 Dose: 1 appl General: obese HEENT: NC/AT, PERRLA Neck: No JVD Lungs: wheezing, ronchi Cardiovascular: RRR, Normal S1, Normal S2, without murmur Abdomen: soft, non-tender, non-distended Extremities: clear Neurological: alert - Procedures Procedures: Procedures Procedure Code Date MONITORING NOS 75.34 10/13/07 OB US < 14 WKS SINGLE FETUS [id number] 10/13/07 Internal Medicine Assmt/Plan - Assessment Assessment: 1) ACUTE HYPOXIC RESPIRATORY FAILURE 2RY TO BRONCHIAL ASTHMA/COPD EXACERBATION 2) HX OF ASTHMA/COPD 3) R/O TRACHEOBRONCHITIS VS EARLY PNA 4) LEUKOCYTOSIS-LIKELY PARTIALLY 2RY TO STEROIDS 5) HISTORY OIF NICOTINE DEPENDENCE 6) LLE RASH-LIKELY ALLERGIC IN NATURE - Plan Plan: CONT WITH CURRENT SUPPORTIVE CARE AND MGT CONT WITH IV ABXS, PULM TOILET, O2 NEEDED CONT WITH IV/INHALED STEROIDS FOLLOW SPUTUM C/S, CXR ABG ON RA IN AM PULM EVAL
--- NOTE | 2018-08-05 19:50 | Progress Notes ---
DATE: 08/05/2018 PULMONARY PROGRESS NOTE SUBJECTIVE: The patient appears to be doing okay, comfortable. No distress. Less congestion, less wheezing. OBJECTIVE: VITAL SIGNS: Temperature 98.0, pulse 80, respiration 18, blood pressure 108/51, saturation 93%. CHEST: Good breath sounds. Decreasing wheezing and rhonchi. HEART: Regular rate and rhythm. ABDOMEN: Soft. EXTREMITIES: No edema. LABORATORY DATA: WBC is 20.6, hemoglobin 13.5, hematocrit 40.7, platelets 246. ABGs: pH 7.44, pCO2 of 35, pO2 of 54, bicarbonate 23. Sodium 141, potassium 4.2, BUN is 12, creatinine 0.5. IMPRESSION: 1. Respiratory failure. 2. Chronic obstructive pulmonary disease exacerbation. 3. Hypoxemia on room air. PLAN: 1. Continue IV Solu-Medrol. 2. Nebulizer. 3. Discharge planning soon. The patient might need to have home O2 and was advised to stop smoking. JOB# [id number]
[2018-08-05] MEDS: methylPREDNISolone SS 40 mg Vial IVP SCH (21:02)
[2018-08-06] MEDS: Sodium Chloride 0.9% 1,000 ML IV SCH ×2 (02:18→17:29)
[2018-08-06] MEDS: Azithromycin 500 MG in Sodium Chloride 0.9% 250 ML IV SCH (02:19)
[2018-08-06 05:34] LABS: % BASOPHILS 0.5 % (0.0-2.0); % EOSINOPHILS 0.2 % (0.0-5.0); % LYMPHOCYTES 24.3 % (20.0-50.0); % MONOCYTES 3.6 % (2.0-10.0); % NEUTROPHILS 71.4 % (40.0-80.0); BASOPHILE ABSOLUTE 0.1 Th/cumm (0-0.2); HEMATOCRIT 41.4 % (41.0-60); HEMOGLOBIN 13.5 gm/dL (12-16); LYMPHOCYTE ABSOLUTE 4.8 Th/cmm (1.5-3.0); MEAN CELL VOLUME 89.7 fl (81-100); MEAN CORPUSCULAR HEMOGLOBIN 29.2 pg (27.0-31.0); MEAN CORPUSCULAR HGB CONC 32.6 pg (28.0-36.0); MEAN PLATELET VOLUME 8.8 fl; MONOCYTE ABSOLUTE 0.7 Th/cmm (0.3-1.0); PLATELET COUNT 255 Th/cmm (150-400); RED BLOOD COUNT 4.62 Mil/cmm (3.80-5.10); RED CELL DISTRIBUTION WIDTH 12.7 % (11.5-20.0)
[2018-08-06 05:46] LABS: WHITE BLOOD COUNT 19.6 Th/cmm (4.8-10.8)
[2018-08-06 06:25] LABS: ANION GAP 11.6 (7.0-16.0); BUN - UREA NITROGEN 13 mg/dL (7-25); CALCIUM SERUM 8.4 mg/dL (8.6-10.3); CARBON DIOXIDE 22.5 mEq/L (21.0-31.0); CHLORIDE 109 mEq/L (98-107); CREATININE - SERUM 0.6 mg/dL (0.6-1.2); GFR AFRICAN-AMERICAN > 60.0 ml/min (>90); GFR NON AFRICAN-AMERICAN > 60.0 ml/min; GLUCOSE 127 mg/dL (70-105); POTASSIUM SERUM 4.1 mEq/L (3.5-5.1); SODIUM SERUM 139 mEq/L (136-145)
[2018-08-06] MEDS: Budesonide 0.5 Mg/2 mL Ud HHN SCH ×2 (07:21→18:25)
[2018-08-06] MEDS: Albuterol/Ipratropium Neb 3 ML AERS HHN PRN (07:21)
[2018-08-06] MEDS: Triamcinolone Acetonide 0.1% Cream 15 gm TP SCH ×2 (08:36→16:11)
[2018-08-06] MEDS: methylPREDNISolone SS 40 mg Vial IVP SCH ×2 (08:37→21:10)
[2018-08-06] MEDS: cefTRIAXone 1 GM in Sodium Chloride 0.9% 50 ML IV SCH (17:51)
--- NOTE | 2018-08-06 20:10 | Internal Medicine Prog Note ---
Internal Medicine Subjective - Subjective Service Date: 08/06/18 (REPORTS IMPROVEMENT, HOWEVER, REMAINS WITH LOW 02 SATS ON RA.) Patient seen and examined:: with staff Patient is:: awake, talking, denies any new complaints, congested Patient Complaints of:: congestion, cough, SOB ([place]) Per staff patient has:: no adverse event Internal Medicine Objective - Results Result Diagrams: 08/06/18 05:06 08/06/18 05:06 Recent Labs: Laboratory Last Values WBC 19.6 Th/cmm (4.8-10.8) H 08/06/18 05:06 RBC 4.62 Mil/cmm (3.80-5.10) 08/06/18 05:06 Hgb 13.5 gm/dL (12-16) 08/06/18 05:06 Hct 41.4 % (41.0-60) 08/06/18 05:06 MCV 89.7 fl (81-100) 08/06/18 05:06 MCH 29.2 pg (27.0-31.0) 08/06/18 05:06 MCHC Differential 32.6 pg (28.0-36.0) 08/06/18 05:06 RDW 12.7 % (11.5-20.0) 08/06/18 05:06 Plt Count 255 Th/cmm (150-400) 08/06/18 05:06 MPV 8.8 fl 08/06/18 05:06 Add Manual Diff YES 08/05/18 05:40 Neutrophils % 71.4 % (40.0-80.0) 08/06/18 05:06 Band Neutrophils % 0 % (0-10) 08/04/18 06:00 Lymphocytes % 24.3 % (20.0-50.0) 08/06/18 05:06 Monocytes % 3.6 % (2.0-10.0) 08/06/18 05:06 Eosinophils % 0.2 % (0.0-5.0) 08/06/18 05:06 Basophils % 0.5 % (0.0-2.0) 08/06/18 05:06 Neutrophils (Manual) 72 % (40-80) 08/05/18 05:40 Lymphocytes 22 % (20-50) 08/05/18 05:40 Monocytes 6 % (2-10) 08/05/18 05:40 Eosinophils 0 % (0-5) 08/04/18 06:00 Basophils 0 % (0-3) 08/04/18 06:00 Platelet Estimate ADEQUATE (NORMAL) 08/05/18 05:40 PT 9.6 SECONDS (9.5-11.5) 08/02/18 18:00 INR 0.92 (0.5-1.4) 08/02/18 18:00 PTT (Actin FS) 26.8 SECONDS (26.0-38.0) 08/02/18 18:00 Specimen Source Arterial 08/05/18 08:00 Sample Site RB 08/05/18 08:00 pH 7.44 (7.35-7.45) 08/05/18 08:00 pCO2 35.1 mmHg (35.0-45.0) 08/05/18 08:00 pO2 54.7 mmHg (80.0-100.0) L 08/05/18 08:00 HCO3 23.2 mEq/L (20.0-26.0) 08/05/18 08:00 Base Excess -0.4 mEq/L (-3.0-3.0) 08/05/18 08:00 O2 Saturation 89.8 % (92.0-100.0) L 08/05/18 08:00 Juan J Test NA 08/05/18 08:00 Vent Rate NA 08/05/18 08:00 Inspired O2 21 08/05/18 08:00 Tidal Volume NA 08/05/18 08:00 PEEP NA 08/05/18 08:00 Pressure (ins/psv/peep) NA 08/05/18 08:00 Critical Value SH 08/05/18 08:00 Sodium 139 mEq/L (136-145) 08/06/18 05:06 Potassium 4.1 mEq/L (3.5-5.1) 08/06/18 05:06 Chloride 109 mEq/L (98-107) H 08/06/18 05:06 Carbon Dioxide 22.5 mEq/L (21.0-31.0) 08/06/18 05:06 Anion Gap 11.6 (7.0-16.0) 08/06/18 05:06 BUN 13 mg/dL (7-25) 08/06/18 05:06 Creatinine 0.6 mg/dL (0.6-1.2) 08/06/18 05:06 Est GFR ( Amer) > 60.0 ml/min (>90) 08/06/18 05:06 Est GFR (Non-Af Amer) > 60.0 ml/min 08/06/18 05:06 BUN/Creatinine Ratio 21.7 08/06/18 05:06 Glucose 127 mg/dL (70-105) H 08/06/18 05:06 Whole Bld Lactic Acid 1.51 mmol/L (0.60-1.99) 08/02/18 18:00 Calcium 8.4 mg/dL (8.6-10.3) L 08/06/18 05:06 Magnesium 2.1 mg/dL (1.9-2.7) 08/04/18 06:00 Total Bilirubin 0.3 mg/dL (0.3-1.0) 08/02/18 18:00 AST 18 U/L (13-39) 08/02/18 18:00 ALT 18 U/L (7-52) 08/02/18 18:00 Alkaline Phosphatase 109 U/L (34-104) H 08/02/18 18:00 Creatine Kinase 69 U/L (30-223) 08/02/18 18:00 Troponin I < 0.01 ng/mL (0.01-0.05) L 08/02/18 18:00 Total Protein 7.5 gm/dL (6.0-8.3) 08/02/18 18:00 Albumin 4.4 gm/dL (3.7-5.3) 08/02/18 18:00 Globulin 3.1 gm/dL 08/02/18 18:00 Albumin/Globulin Ratio 1.4 (1.0-1.8) 08/02/18 18:00 Serum , Qual NEGATIVE (NEGATIVE) 08/02/18 18:00 Urine Source MIDSTREAM 08/02/18 18:19 Urine Color YELLOW 08/02/18 18:19 Urine Clarity CLEAR (CLEAR) 08/02/18 18:19 Urine pH 7.0 (4.6 - 8.0) 08/02/18 18:19 Ur Specific [place] 1.010 (1.005-1.030) 08/02/18 18:19 Urine Protein NEGATIVE mg/dL (NEGATIVE) 08/02/18 18:19 Urine Glucose (UA) NEGATIVE mg/dL (NEGATIVE) 08/02/18 18:19 Urine Ketones NEGATIVE mg/dL (NEGATIVE) 08/02/18 18:19 Urine Blood NEGATIVE (NEGATIVE) 08/02/18 18:19 Urine Nitrate NEGATIVE (NEGATIVE) 08/02/18 18:19 Urine Bilirubin NEGATIVE (NEGATIVE) 08/02/18 18:19 Urine Urobilinogen 0.2 E.U./dL (0.2 - 1.0) 08/02/18 18:19 Ur Leukocyte Esterase NEGATIVE (NEGATIVE) 08/02/18 18:19 Urine RBC 0-2 /hpf (0-5) 08/02/18 18:19 Urine WBC 2-5 /hpf (0-5) 08/02/18 18:19 Ur Epithelial Cells FEW /lpf (FEW) 08/02/18 18:19 Urine Bacteria FEW /hpf (NONE SEEN) 08/02/18 18:19 - Physical Exam Vitals and I&O: Vital Signs Temp 97.4 F 08/06/18 15:47 Pulse 59 08/06/18 18:25 Resp 20 08/06/18 18:25 BP 119/63 08/06/18 15:47 Pulse Ox 96 08/06/18 18:25 Intake & Output 08/06/18 08/06/18 08/07/18 06:59 18:59 06:59 Intake Total 1650 1600 Balance 1650 1600 Weight (lbs) 105.687 kg 105.687 kg Intake: Intake, IV Amount 1250 1000 Azithromycin 500 mg In 250 Sodium Chloride 0.9% 250 ml @ 250 mls/hr IV Q24HR [facility] Rx#:[id number] Sodium Chloride 0.9% 1, 1000 1000 000 ml @ 75 mls/hr IV . [id number] [facility] Rx#:[id number] Oral 400 600 Other: # Voids 1 3 # Bowel Movements 0 1 Stool Characteristics Soft Brown Weight Source Bedscale Bedscale Active Medications: Current Medications Acetaminophen (Tylenol Extra Strength) 500 mg PO Q4H PRN PRN Reason: HEADACHE Stop: 10/02/18 12:29 Last Admin: 08/03/18 12:50 Dose: 500 mg Albuterol/Ipratropium (Duoneb Neb) 3 ml HHN Q4HRT PRN PRN Reason: Wheezing Stop: 10/02/18 02:07 Last Admin: 08/06/18 07:21 Dose: 3 ml Budesonide (Pulmicort) 0.5 mg HHN Q12HRT [facility] Stop: 10/02/18 08:59 Last Admin: 08/06/18 18:25 Dose: 0.5 mg Azithromycin 500 mg/ Sodium (Chloride) 250 mls @ 250 mls/hr IV Q24HR [facility] Stop: 10/02/18 02:59 Last Infusion: 08/06/18 05:22 Dose: Infused Ceftriaxone Sodium 1 gm/ (Sodium Chloride) 50 mls @ 100 mls/hr IV Q24HR [facility] Stop: 10/02/18 18:51 Last Admin: 08/06/18 17:51 Dose: 100 mls/hr Sodium Chloride (Nacl 0.9%) 1,000 mls @ 75 mls/hr IV .[id number] [facility] Stop: 10/02/18 02:07 Last Admin: 08/06/18 17:29 Dose: 75 mls/hr Methylprednisolone Sodium Succinate (Solu-Medrol) 40 mg IVP Q12HR [facility] Stop: 10/04/18 20:59 Last Admin: 08/06/18 08:37 Dose: 40 mg Miscellaneous (Probiotic Screen) 1 ea MC PRN PRN PRN Reason: PROTOCOL Stop: 10/04/18 14:59 Triamcinolone Acetonide (Kenalog 0.1%) 1 appl TP BID [facility] Stop: 10/03/18 09:59 Last Admin: 08/06/18 16:11 Dose: 1 appl General: obese HEENT: NC/AT, PERRLA Neck: No JVD Lungs: wheezing, ronchi, other (IMPROVED LUNG-AIR ENTRY WITH LESS WHEEZING) Cardiovascular: RRR, Normal S1, Normal S2, without murmur Abdomen: soft, non-tender, non-distended Extremities: clear Neurological: alert - Procedures Procedures: Procedures Procedure Code Date MONITORING NOS 75.34 10/13/07 OB US < 14 WKS SINGLE FETUS [id number] 10/13/07 Internal Medicine Assmt/Plan - Assessment Assessment: 1) ACUTE HYPOXIC RESPIRATORY FAILURE 2RY TO BRONCHIAL ASTHMA/COPD EXACERBATION-- clinically improving. 2) HX OF ASTHMA/COPD 3) R/O TRACHEOBRONCHITIS VS EARLY PNA 4) LEUKOCYTOSIS-LIKELY PARTIALLY 2RY TO STEROIDS 5) HISTORY OIF NICOTINE DEPENDENCE 6) LLE RASH-LIKELY ALLERGIC IN NATURE - Plan Plan: CONT WITH CURRENT SUPPORTIVE CARE AND MGT CONT WITH IV ABXS, PULM TOILET, O2 NEEDED CONT WITH IV/INHALED STEROIDS-WEAN TOLERATED CT SCAN CHEST DC PLANNING SOON PULM FU
[2018-08-07] MEDS: Azithromycin 500 MG in Sodium Chloride 0.9% 250 ML IV SCH (03:00)
[2018-08-07 06:39] LABS: % BASOPHILS 0.8 % (0.0-2.0); % EOSINOPHILS 0.2 % (0.0-5.0); % LYMPHOCYTES 26.8 % (20.0-50.0); % MONOCYTES 3.7 % (2.0-10.0); % NEUTROPHILS 68.5 % (40.0-80.0); BASOPHILE ABSOLUTE 0.2 Th/cumm (0-0.2); HEMATOCRIT 42.3 % (41.0-60); HEMOGLOBIN 13.9 gm/dL (12-16); LYMPHOCYTE ABSOLUTE 5.1 Th/cmm (1.5-3.0); MEAN CORPUSCULAR HEMOGLOBIN 29.3 pg (27.0-31.0); MEAN CORPUSCULAR HGB CONC 32.9 pg (28.0-36.0); MEAN PLATELET VOLUME 9.1 fl; MONOCYTE ABSOLUTE 0.7 Th/cmm (0.3-1.0); NEUTROPHILE ABSOLUTE 13.1 Th/cmm (1.8-8.0); PLATELET COUNT 270 Th/cmm (150-400); RED BLOOD COUNT 4.75 Mil/cmm (3.80-5.10); RED CELL DISTRIBUTION WIDTH 12.7 % (11.5-20.0)
[2018-08-07 06:48] LABS: WHITE BLOOD COUNT 19.1 Th/cmm (4.8-10.8)
[2018-08-07] MEDS: Budesonide 0.5 Mg/2 mL Ud HHN SCH (07:24)
[2018-08-07] MEDS: methylPREDNISolone SS 40 mg Vial IVP SCH (08:22)
[2018-08-07] MEDS: Triamcinolone Acetonide 0.1% Cream 15 gm TP SCH ×2 (08:22→16:22)
--- NOTE | 2018-08-07 09:06 | Internal Medicine Prog Note ---
Internal Medicine Subjective - Subjective Service Date: 08/07/18 (CPMFORTABLE. SCHEDULED FOR CT OF CHEST THIS MORNING) Patient is:: awake, talking, denies any new complaints, congested Patient Complaints of:: congestion, cough, SOB ([place]) Per staff patient has:: no adverse event Internal Medicine Objective - Results Result Diagrams: 08/07/18 05:55 08/06/18 05:06 Recent Labs: Laboratory Last Values WBC 19.1 Th/cmm (4.8-10.8) H 08/07/18 05:55 RBC 4.75 Mil/cmm (3.80-5.10) 08/07/18 05:55 Hgb 13.9 gm/dL (12-16) 08/07/18 05:55 Hct 42.3 % (41.0-60) 08/07/18 05:55 MCV 89.0 fl (81-100) 08/07/18 05:55 MCH 29.3 pg (27.0-31.0) 08/07/18 05:55 MCHC Differential 32.9 pg (28.0-36.0) 08/07/18 05:55 RDW 12.7 % (11.5-20.0) 08/07/18 05:55 Plt Count 270 Th/cmm (150-400) 08/07/18 05:55 MPV 9.1 fl 08/07/18 05:55 Add Manual Diff YES 08/05/18 05:40 Neutrophils % 68.5 % (40.0-80.0) 08/07/18 05:55 Band Neutrophils % 0 % (0-10) 08/04/18 06:00 Lymphocytes % 26.8 % (20.0-50.0) 08/07/18 05:55 Monocytes % 3.7 % (2.0-10.0) 08/07/18 05:55 Eosinophils % 0.2 % (0.0-5.0) 08/07/18 05:55 Basophils % 0.8 % (0.0-2.0) 08/07/18 05:55 Neutrophils (Manual) 72 % (40-80) 08/05/18 05:40 Lymphocytes 22 % (20-50) 08/05/18 05:40 Monocytes 6 % (2-10) 08/05/18 05:40 Eosinophils 0 % (0-5) 08/04/18 06:00 Basophils 0 % (0-3) 08/04/18 06:00 Platelet Estimate ADEQUATE (NORMAL) 08/05/18 05:40 PT 9.6 SECONDS (9.5-11.5) 08/02/18 18:00 INR 0.92 (0.5-1.4) 08/02/18 18:00 PTT (Actin FS) 26.8 SECONDS (26.0-38.0) 08/02/18 18:00 Specimen Source Arterial 08/05/18 08:00 Sample Site RB 08/05/18 08:00 pH 7.44 (7.35-7.45) 08/05/18 08:00 pCO2 35.1 mmHg (35.0-45.0) 08/05/18 08:00 pO2 54.7 mmHg (80.0-100.0) L 08/05/18 08:00 HCO3 23.2 mEq/L (20.0-26.0) 08/05/18 08:00 Base Excess -0.4 mEq/L (-3.0-3.0) 08/05/18 08:00 O2 Saturation 89.8 % (92.0-100.0) L 08/05/18 08:00 Juan J Test NA 08/05/18 08:00 Vent Rate NA 08/05/18 08:00 Inspired O2 21 08/05/18 08:00 Tidal Volume NA 08/05/18 08:00 PEEP NA 08/05/18 08:00 Pressure (ins/psv/peep) NA 08/05/18 08:00 Critical Value SH 08/05/18 08:00 Sodium 139 mEq/L (136-145) 08/06/18 05:06 Potassium 4.1 mEq/L (3.5-5.1) 08/06/18 05:06 Chloride 109 mEq/L (98-107) H 08/06/18 05:06 Carbon Dioxide 22.5 mEq/L (21.0-31.0) 08/06/18 05:06 Anion Gap 11.6 (7.0-16.0) 08/06/18 05:06 BUN 13 mg/dL (7-25) 08/06/18 05:06 Creatinine 0.6 mg/dL (0.6-1.2) 08/06/18 05:06 Est GFR ( Amer) > 60.0 ml/min (>90) 08/06/18 05:06 Est GFR (Non-Af Amer) > 60.0 ml/min 08/06/18 05:06 BUN/Creatinine Ratio 21.7 08/06/18 05:06 Glucose 127 mg/dL (70-105) H 08/06/18 05:06 Whole Bld Lactic Acid 1.51 mmol/L (0.60-1.99) 08/02/18 18:00 Calcium 8.4 mg/dL (8.6-10.3) L 08/06/18 05:06 Magnesium 2.1 mg/dL (1.9-2.7) 08/04/18 06:00 Total Bilirubin 0.3 mg/dL (0.3-1.0) 08/02/18 18:00 AST 18 U/L (13-39) 08/02/18 18:00 ALT 18 U/L (7-52) 08/02/18 18:00 Alkaline Phosphatase 109 U/L (34-104) H 08/02/18 18:00 Creatine Kinase 69 U/L (30-223) 08/02/18 18:00 Troponin I < 0.01 ng/mL (0.01-0.05) L 08/02/18 18:00 Total Protein 7.5 gm/dL (6.0-8.3) 08/02/18 18:00 Albumin 4.4 gm/dL (3.7-5.3) 08/02/18 18:00 Globulin 3.1 gm/dL 08/02/18 18:00 Albumin/Globulin Ratio 1.4 (1.0-1.8) 08/02/18 18:00 Serum , Qual NEGATIVE (NEGATIVE) 08/02/18 18:00 Urine Source MIDSTREAM 08/02/18 18:19 Urine Color YELLOW 08/02/18 18:19 Urine Clarity CLEAR (CLEAR) 08/02/18 18:19 Urine pH 7.0 (4.6 - 8.0) 08/02/18 18:19 Ur Specific [place] 1.010 (1.005-1.030) 08/02/18 18:19 Urine Protein NEGATIVE mg/dL (NEGATIVE) 08/02/18 18:19 Urine Glucose (UA) NEGATIVE mg/dL (NEGATIVE) 08/02/18 18:19 Urine Ketones NEGATIVE mg/dL (NEGATIVE) 08/02/18 18:19 Urine Blood NEGATIVE (NEGATIVE) 08/02/18 18:19 Urine Nitrate NEGATIVE (NEGATIVE) 08/02/18 18:19 Urine Bilirubin NEGATIVE (NEGATIVE) 08/02/18 18:19 Urine Urobilinogen 0.2 E.U./dL (0.2 - 1.0) 08/02/18 18:19 Ur Leukocyte Esterase NEGATIVE (NEGATIVE) 08/02/18 18:19 Urine RBC 0-2 /hpf (0-5) 08/02/18 18:19 Urine WBC 2-5 /hpf (0-5) 08/02/18 18:19 Ur Epithelial Cells FEW /lpf (FEW) 08/02/18 18:19 Urine Bacteria FEW /hpf (NONE SEEN) 08/02/18 18:19 - Physical Exam Vitals and I&O: Vital Signs Temp 97.6 F 08/07/18 07:56 Pulse 48 08/07/18 07:56 Resp 18 08/07/18 07:56 BP 116/57 08/07/18 07:56 Pulse Ox 95 08/07/18 07:56 Intake & Output 08/06/18 08/07/18 08/07/18 18:59 06:59 18:59 Intake Total 1600 550 Balance 1600 550 Weight (lbs) 105.687 kg 105.687 kg Intake: Intake, IV Amount 1000 250 Azithromycin 500 mg In 250 Sodium Chloride 0.9% 250 ml @ 250 mls/hr IV Q24HR [facility] Rx#:[id number] Sodium Chloride 0.9% 1, 1000 000 ml @ 75 mls/hr IV . [id number] [facility] Rx#:[id number] Oral 600 300 Other: # Voids 3 2 # Bowel Movements 1 0 Stool Characteristics Soft Soft Brown Brown Weight Source Bedscale Bedscale Active Medications: Current Medications Acetaminophen (Tylenol Extra Strength) 500 mg PO Q4H PRN PRN Reason: HEADACHE Stop: 10/02/18 12:29 Last Admin: 08/03/18 12:50 Dose: 500 mg Albuterol/Ipratropium (Duoneb Neb) 3 ml HHN Q4HRT PRN PRN Reason: Wheezing Stop: 10/02/18 02:07 Last Admin: 08/06/18 07:21 Dose: 3 ml Budesonide (Pulmicort) 0.5 mg HHN Q12HRT [facility] Stop: 10/02/18 08:59 Last Admin: 08/07/18 07:24 Dose: 0.5 mg Azithromycin 500 mg/ Sodium (Chloride) 250 mls @ 250 mls/hr IV Q24HR [facility] Stop: 10/02/18 02:59 Last Infusion: 08/07/18 06:07 Dose: Infused Ceftriaxone Sodium 1 gm/ (Sodium Chloride) 50 mls @ 100 mls/hr IV Q24HR [facility] Stop: 10/02/18 18:51 Last Admin: 08/06/18 17:51 Dose: 100 mls/hr Sodium Chloride (Nacl 0.9%) 1,000 mls @ 75 mls/hr IV .[id number] [facility] Stop: 10/02/18 02:07 Last Admin: 08/06/18 17:29 Dose: 75 mls/hr Methylprednisolone Sodium Succinate (Solu-Medrol) 40 mg IVP Q12HR [facility] Stop: 10/04/18 20:59 Last Admin: 08/07/18 08:22 Dose: 40 mg Miscellaneous (Probiotic Screen) 1 ea MC PRN PRN PRN Reason: PROTOCOL Stop: 10/04/18 14:59 Triamcinolone Acetonide (Kenalog 0.1%) 1 appl TP BID [facility] Stop: 10/03/18 09:59 Last Admin: 08/07/18 08:22 Dose: 1 appl General: obese HEENT: NC/AT, PERRLA Neck: No JVD Lungs: wheezing, ronchi, other (IMPROVED LUNG-AIR ENTRY WITH LESS WHEEZING) Cardiovascular: RRR, Normal S1, Normal S2, without murmur Abdomen: soft, non-tender, non-distended Extremities: clear Neurological: alert - Procedures Procedures: Procedures Procedure Code Date MONITORING NOS 75.34 10/13/07 OB US < 14 WKS SINGLE FETUS [id number] 10/13/07 Internal Medicine Assmt/Plan - Assessment Assessment: 1) ACUTE HYPOXIC RESPIRATORY FAILURE 2RY TO BRONCHIAL ASTHMA/COPD EXACERBATION-- clinically improving. 2) HX OF ASTHMA/COPD 3) R/O TRACHEOBRONCHITIS VS EARLY PNA 4) LEUKOCYTOSIS-LIKELY PARTIALLY 2RY TO STEROIDS 5) HISTORY OIF NICOTINE DEPENDENCE 6) LLE RASH-LIKELY ALLERGIC IN NATURE - Plan Plan: CONT WITH CURRENT SUPPORTIVE CARE AND MGT CONT WITH IV ABXS, PULM TOILET, O2 NEEDED CONT WITH IV/INHALED STEROIDS-WEAN TOLERATED CT SCAN CHEST-follow results. PULM FU DC PLANNING SOON
[2018-08-07] MEDS ORDERED: IOHEXOL 300mgI/mL 100 ML VIAL ONE (09:10)
--- NOTE | 2018-08-07 09:48 | Progress Notes ---
DATE: 08/06/2018 PULMONARY PROGRESS NOTE SUBJECTIVE: The patient appears to be doing okay, comfortable, in no distress. Denies shortness of breath. OBJECTIVE: VITAL SIGNS: Temperature 97.4, pulse 58, respirations 20, blood pressure 90/63, and saturation 96% on oxygen and 93% on room air at rest. CHEST: Good breath sounds. Minimal wheezing. No crackles. HEART: Regular rate and rhythm. ABDOMEN: Soft. EXTREMITIES: There is no edema. IMPRESSION: 1. Respiratory failure. 2. Chronic obstructive pulmonary disease exacerbation. 3. Acute bronchitis. 4. Hypoxemia. PLAN: 1. Continue aspirin. 2. Antibiotics. 3. Steroids. 4. Plan to go home tomorrow. We will reevaluate the oxygen saturation at rest and with exertion prior to discharge. JOB# [id number]
--- NOTE | 2018-08-07 11:00 | Diagnostic Imaging Report ---
CT scan of the chest with intravenous contrast HISTORY: Shortness of breath Total DLP equals 360 CTDI equals 8.9 Following administration of intravenous contrast, axial sections were obtained from a level above the clavicles down to level below the diaphragm. The heart size is normal. No abnormal mediastinal masses are seen. No vascular abnormalities. The hilar regions appear normal. There is a faint ill-defined nonspecific focus of parenchymal density in the periphery of the right mid lung. Additional linear density noted in the right lower lobe which appears chronic. No other focal pulmonary parenchymal processes. No pleural fluid is seen. Limited sections below the diaphragm demonstrate hepatomegaly. There is a decrease in overall hepatic parenchymal density which may be associated with fatty infiltration and should be correlated with liver function tests. Surgical clips are seen within the phillip hepatis region consistent with a prior cholecystectomy. IMPRESSION: 1. Nonspecific faint parenchymal density within the periphery of the right lower lobe. Changes may be chronic. Clinical correlation needed. 2. Hepatomegaly along with parenchymal changes suggesting fatty infiltration. The findings should be correlated with liver function tests. 3. Status post cholecystectomy
== END 2018-08-07 18:54 | disposition home or self-care (01) | DRG 133 ==
LOC: ER 17:01 → TELE 08-03 00:30 → MSI 08-04 10:00
PROVIDERS: ADMIT Internal Medicine; ATTEND Internal Medicine
DX: J96.01 Acute respiratory failure with hypoxia (principal); J44.1 Chronic obstructive pulmonary disease with (acute) exacerbation; J45.901 Unspecified asthma with (acute) exacerbation; R00.0 Tachycardia, unspecified; F17.210 Nicotine dependence, cigarettes, uncomplicated; J20.9 Acute bronchitis, unspecified; R21 Rash and other nonspecific skin eruption; D72.829 Elevated white blood cell count, unspecified; T38.0X5A Adverse effect of glucocorticoids and synthetic analogues, initial encounter; Y92.89 Other specified places as the place of occurrence of the external cause
CPT/HCPCS: 36415-UA; 36600-90; 71045-TC; 71046-TC; 71260-TC; 80048-TC; 80053-TC; 81001-TC; 82550-TC; 82803-TC; 83036-90; 83605; 83735-TC; 84484-TC; 84703-TC; 85007-TC; 85025-TC; 85610-TC; 85730-TC; 87070; 93005; 94640; 94760; 96375; J0456; J0696; J2920; J2930; J7030; Q9967; Z7610